=== PATIENT | female | born 1975 | race Caucasian/White ===

== ENCOUNTER 2017-06-23 18:54 | Emergency (ER) | payer MEDICAID, OTHER ==
[~2017-06-23] VITALS: Ht 157.5 cm; Wt 64.9 kg
[2017-06-23 18:56] VITALS: BP 158/112
== END 2017-06-23 20:29 | disposition home or self-care (01) ==
LOC: ED 20:10
DX: J45.40 Moderate persistent asthma, uncomplicated (principal)
CPT/HCPCS: 71046; 93005; 99284

== ENCOUNTER → 2017-10-26 | Outpatient (CLI) | payer MEDICAID | END | disposition home or self-care (01) | LOC: CFH 12:02 | PROVIDERS: ATTEND Family Medicine | DX: Z12.31 Encounter for screening mammogram for malignant neoplasm of breast (principal); Z80.3 Family history of malignant neoplasm of breast | CPT/HCPCS: 77067 ==